=== PATIENT | male | born 2000 | race Two or more races ===

== ENCOUNTER 2022-01-18 05:48 | Emergency (ER) | payer MEDICAID ==
[~2022-01-18] VITALS: Ht 195.6 cm; Wt 104.3 kg
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
--- NOTE | 2022-01-18 10:16 | NUR ---
PT AWAKE, AAOX3. PROVIDED W FOOD TRAY. AMBULATORY W/ STEADY GAIT. REQUESTED TO BE DISCHARGED. ASKED HIS FOR HIS MODE OF TRANSPORTATION AND STATES HE IS GOING TO TAKE THE [place]. DISCHARGE HOME IN STABLE CONDITION.
[2022-01-18 10:19] VITALS: BP 128/76
== END 2022-01-18 10:20 | disposition home or self-care (01) ==
LOC: ER 05:58
DX: S00.12XA Contusion of left eyelid and periocular area, initial encounter (principal); Z60.2 Problems related to living alone; Y04.2XXA Assault by strike against or bumped into by another person, initial encounter; Y93.89 Activity, other specified; Y92.89 Other specified places as the place of occurrence of the external cause; Y99.8 Other external cause status

== ENCOUNTER 2022-01-20 06:05 | Emergency (ER) | payer MEDICAID ==
[~2022-01-20] VITALS: Ht 195.6 cm; Wt 95.3 kg
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
--- NOTE | 2022-01-20 06:19 | NUR ---
PHLEB AT BEDSIDE
--- NOTE | 2022-01-20 06:19 | NUR ---
URINE COLLECTED AND SENT TO LAB
[2022-01-20 06:35] LABS: BASOPHILS % (AUTO) 0.3 % (0.0-2.0); EOSINOPHILS % (AUTO) 8.1 % (0.0-6.0); HEMATOCRIT 45 % (39-51); HEMOGLOBIN 14.9 g/dL (13.5-17.5); LYMPHOCYTES % (AUTO) 29.2 % (20.0-44.0); MEAN CORPUSCULAR HGB CONC 33 g/dl (31.0-36.0); MEAN CORPUSCULAR VOLUME 89 fL (80-96); MONOCYTES # (AUTO) 0.8 K/uL (0.1-1.30); MONOCYTES % (AUTO) 11.6 % (2.0-12.0); NEUTROPHILS # (AUTO) 3.4 K/uL (1.8-8.9); NEUTROPHILS % (AUTO) 50.8 % (43.0-81.0); PLATELET COUNT (AUTO) 314 K/uL (150-450); RED BLOOD CELL COUNT(AUTO) 5.06 MIL/uL (4.5-6.0); WHITE BLOOD COUNT (AUTO) 6.7 K/uL (4.3-11.0)
[2022-01-20 06:49] LABS: BILIRUBIN,URINE NEGATIVE (NEGATIVE); COLOR,URINE YELLOW (YELLOW); LEUKOCYTE ESTERASE ,URINE NEGATIVE (NEGATIVE); NITRITE, URINE NEGATIVE (NEGATIVE); PH,URINE 6.5 (5.0-8.0); PROTEIN,URINE NEGATIVE (NEGATIVE); UGLUCOSE NEGATIVE (NEGATIVE); UROBILINOGEN,URINE 0.2 EU/dL (0.2)
[2022-01-20 06:56] LABS: ALBUMIN 3.8 g/dL (3.4-5.0); BILIRUBIN,DIRECT 0.2 mg/dL (0.0-0.2); BILIRUBIN,TOTAL 0.5 mg/dL (0.2-1.0); CALCIUM, SERUM 8.7 mg/dL (8.5-10.1); CREATININE 0.8 mg/dL (0.6-1.3); POTASSIUM 3.8 mmol/L (3.5-5.1)
[2022-01-20 07:11] LABS: BACTERIA,URINE None seen /HPF (None Seen); RBC,URINE 0-2 /HPF (0-2); SQUAMOUS EPITHELIAL CELL,UR Rare /HPF (None Seen); WBC,URINE 0-2 /HPF (0-3)
--- NOTE | 2022-01-20 10:22 | NUR ---
PT AMBULATORY W/ STEADY GAIT; STATES THAT HE HAS WORK TODAY AND WOULD LIKE TO BE DISCHARGED. MADE AWARE.
--- NOTE | 2022-01-20 10:38 | NUR ---
DR AGRAWAL SPEAKING W/ PT
[2022-01-20 10:40] VITALS: BP 124/86
--- NOTE | 2022-01-20 10:47 | NUR ---
Patient discharged to home in stable condition. Written and verbal after care instructions given. Patient verbalizes understanding of instruction.
== END 2022-01-20 10:47 | disposition home or self-care (01) ==
LOC: ER 06:07
DX: S00.83XA Contusion of other part of head, initial encounter (principal); F10.129 Alcohol abuse with intoxication, unspecified; Z60.2 Problems related to living alone; Y90.7 Blood alcohol level of 200-239 mg/100 ml; X58.XXXA Exposure to other specified factors, initial encounter; Y93.89 Activity, other specified; Y92.89 Other specified places as the place of occurrence of the external cause; Y99.8 Other external cause status
CPT/HCPCS: 36415; 70450-TC; 80048-TC; 80076-TC; 81001; 85025-TC; G0480